=== PATIENT | female | born 1980 | race Caucasian/White ===

== ENCOUNTER 2019-10-05 11:56 | Emergency (ER) | payer BC, SELFPAY ==
[2019-10-05] VITALS (15 sets, daily range): BP systolic 107–136; BP diastolic 53–65; PULSE 65–75; RESP 9–21; TEMP 36.4; O2SAT 100
--- NOTE | ~2019-10-05 | CT_ITS ---
EXAMINATION: CT abdomen pelvis wo con DATE: 10/05/2019 12:47 INDICATION: Right flank pain TECHNIQUE: Computed tomography (CT) of the abdomen and pelvis was performed without intravenous contr ast. Automated exposure control and iterative reconstruction technique were employed. Exam dose: 675 .05 mGy-cm total exam DLP. COMPARISON: None. FINDINGS: The lung bases are clear. Normal heart size. Pacemaker lead. No pericardial or pleural effu tierra. The liver, gallbladder, bile ducts, spleen, pancreas, pancreatic duct and adrenal glands are unremark able. There is an approximately 3.7 mm distal right ureteral calculus with mild to moderate right hydrouret eronephrosis. No other urinary tract calculus is evident. No left hydroureteronephrosis. Normal caliber of the abdominal aorta. No intraperitoneal or retroperitoneal or pelvic mass lesion or adenopathy. An IUD is noted within the uterus. The uterus and adnexal areas and urinary bladder are otherwise unr emarkable. There is a small amount of likely physiologic free fluid in the dependent pelvis. No bowel obstruction or intraperitoneal free air is detected. Normal appendix. Small fat-containing umbilical hernia. IMPRESSION: 3.7 mm distal right ureteral calculus with mild to moderate right hydroureteronephrosis Reviewed, dictated and finalized at [facility] Reviewed, dictated and finalized at [facility].
--- NOTE | 2019-10-05 12:17 | ED.ABDPAIN ---
HPI - Abdominal Pain General Chief Complaint: Urogenital-Female Stated Complaint: right flank pain Time Seen by Provider: 10/05/19 11:58 Source: patient Mode of arrival: ambulatory Limitations: no limitations History of Present Illness HPI narrative: Patient is a 39-year-old female who presents to emergency department for evaluation of right flank pain began acutely today as a sharp stabbing pain from the low back into the groin with associated chills nausea and vomiting denies similar occurrence has not taken anything for symptoms presents to the emergency department in no obvious distress. Related Data Allergies Allergy/AdvReac Type Severity Reaction Status Date / Time No Known Allergies Allergy Mild Unverified 10/26/08 18:13 Review of Systems Review of Systems: All systems reviewed & are unremarkable except as noted in HPI and below PMFSH Past Medical History Medical History (Updated 10/05/19 @ 15:48 by Teddy Vo PA-C) Prolonged QT syndrome Surgical History Surgical History History of cardiac defibrillator placement Social History Social History Gender identity (if verbalized by the patient): Female Exam Narrative: Exam Narrative: GENERAL: Well-appearing, well-nourished, and in no acute distress. HEAD: Normocephalic, atraumatic. EYES: PERRLA and EOMI. ENT: Nares clear, no rhinorrhea or epistaxis. Mucous membranes moist. Oropharynx without tonsillar hypertrophy exudate or other lesions. CHEST: Clear to auscultation. No respiratory distress. No wheezes rales or rhonchi HEART: Regular rate and rhythm. No murmur heard. Normal peripheral pulses. ABDOMEN: Soft, tenderness in the right side of the abdomen, no rebound or guarding. Nondistended EXTREMITIES: Normal range of motion. No edema. SKIN: Warm, dry, no rash. NEURO: No focal deficits. Alert and oriented x3. Cranial nerves 2-12 intact PSYCH: Normal mood and affect. Course Course Emergency Course: Patient in the room at this time in no distress aware of case findings treatment plan and diagnosis. Patient was given 3 L of fluid in the emergency department noting improvement of condition and pain. Patient aware of discussion with urology and agreeing to follow-up on an outpatient basis provided with reasons to return Consultations Consultation #1: Discussed case with neurology who recommends the patient can be sent home Date: 10/05/19 Time: 15:47 Vital Signs Vital signs: Vital Signs Temperature 97.5 F L 10/05/19 11:59 Pulse Rate 68 10/05/19 11:59 Respiratory Rate 10/05/19 11:59 Blood Pressure 136/53 L 10/05/19 11:59 Pulse Oximetry 100 10/05/19 11:59 Temperature 97.5 F L 10/05/19 11:59 Pulse Rate 68 10/05/19 11:59 Respiratory Rate 10/05/19 11:59 Blood Pressure 136/53 L 10/05/19 11:59 Pulse Oximetry 100 10/05/19 11:59 MDM - Abdominal Pain MDM Narrative Medical decision making narrative: Patient with urolithiasis without other high risk changes in the imaging or blood work felt appropriate for outpatient reevaluation with improvement with medications provided with reasons to return and agrees to do so if symptoms worsen Imaging Data Radiologist's impression: ITS Impressions Abdomen/Pelvis CT 10/05/19 13:04 IMPRESSION: 3.7 mm distal right ureteral calculus with mild to moderate right hydroureteronephrosis Discharge Plan Discharge Clinical Impression: Urolithiasis Patient Disposition: Home, Self-Care Condition: Stable Instructions: Antibiotic Form, Kidney Stones (ED) Additional Instructions: Follow-up with primary care and urology in the next 3 days for reevaluation Antibiotics as prescribed. Increase fluid intake. Tylenol for pain and or fever if needed. Follow up with your doctor for further care. Call your doctor or return to the emergency depa
[2019-10-05] MEDS: KETOROLAC 30 MG/ML VIAL (*BKC) IV PUSH (12:20)
[2019-10-05] MEDS: SODIUM CHLORIDE 0.9% IV 1,000 ML 999 ML IV CONT ×3 (12:20→15:16)
[2019-10-05 12:23] LABS: Basophils Percent Auto 0.4 % (0.2-1.2); Eosinophils Absolute Auto 0.4 K/mm3 (0-0.3); Eosinophils Percent Auto 3.4 % (0-4.4); Hemoglobin 14.2 g/dL (12.0-15.0); Immature Granulocyte Absolute 0.03 K/mm3 (0.00-0.031); Immature Granulocyte Percent A 0.3 % (0-0.5); Lymphocytes Absolute Auto 2.96 K/mm3 (0.9-3.2); Lymphocytes Percent Auto 27.4 % (18.3-44.2); Mean Corpuscular HGB Conc 32.3 g/dl (32-36); Mean Corpuscular Hemoglobin 30.6 pg (26-34); Mean Corpuscular Volume 94.8 fl (80-100); Mean Platelet Volume 11.9 fl (7.4-10.4); Monocytes Absolute Auto 0.8 K/mm3 (0.1-0.6); Monocytes Percent Auto 7.6 % (2.6-8.5); Neutrophils Absolute Auto 6.6 K/mm3 (1.3-6.7); Neutrophils Percent Auto 60.9 % (45.5-73.1); Platelet Count Result 245 k/mm3 (150-375); Red Blood Count 4.64 M/mm3 (4.2-5.4); Red Cell Distribution Width 13.6 % (11.5-14.5); White Blood Count 10.8 K/mm3 (4.5-10.0)
[2019-10-05 12:30] LABS: Add Urine Microscopic? YES; Appearance Urine Clear (Clear); Bacteria Urine Trace /hpf; Bilirubin Urine Negative (Negative); Blood Urine Negative (Negative); Color Urine Yellow (Yellow); Glucose Urine UA Negative (Negative); Ketones Urine Trace mg/dL (Negative); Leukocyte Esterase Ur Negative LEU/UL (Negative); Mucus Urine Heavy /lpf; Nitrate Urine Negative (Negative); Protein Urine 1+ mg/dL (Negative); Specific Grav Ur 1.024 (1.001-1.035); Squamous Epithelial Cell Urine Many /hpf (Few); Urobilinogen Urine Negative mg/dL (<2.0); WBC Urine 0-3 /hpf
[2019-10-05] MEDS: PROMETHAZINE HCL 25 MG/ML AMPUL 12.5 MG IV PUSH (12:32)
[2019-10-05 12:34] LABS: Alanine Aminotransferase 17 U/L (4-35); Albumin Level 4.7 g/dL (3.5-5.1); Alkaline Phosphatase 45 U/L (38-126); Aspartate Amino Transferase 20 U/L (14-36); Bilirubin,Total 0.6 mg/dL (0.2-1.3); Blood Urea Nitrogen 9 mg/dL (7-17); Calcium 9.1 mg/dL (8.4-10.2); Carbon Dioxide 27 mmol/L (22-30); Chloride 103 mmol/L (98-107); Estimated CRCL calculation 74 ml/min; Estimated Glomerular Filt Rate > 60; Glucose 118 mg/dL (65-105); Potassium 3.6 mmol/L (3.4-5.0); Sodium 137 mmol/L (137-145)
[2019-10-05] MEDS: MORPHINE SULFATE 4 MG/ML INJ IV PUSH (14:12)
== END 2019-10-05 17:27 | disposition home or self-care (01) ==
PROVIDERS: Emergency Medicine Emergency Medical Services; Emergency Provider Emergency Medicine; PCP Nurse Practitioner Family
DX: N13.2 Hydronephrosis with renal and ureteral calculous obstruction (principal)
CPT/HCPCS: 36415; 74176; 80053; 81001; 81025; 85025; 96361; 96365; 96375; 99284; A9270; J0131; J1885; J2270; J2550; J7030

== ENCOUNTER → 2020-03-31 09:50 | Outpatient (CLI) | payer BC, SELFPAY ==
--- NOTE | ~2020-03-31 | MMUS_ITS ---
EXAMINATION: MM diagnostic saji BI w brenda, US breast BI complete HISTORY: Palpable breast abnormalities in breast pain. TECHNIQUE: Additional 3-D tomosynthesis images of the breasts were performed and synthetic 2-D images were generated. CAD analysis was submitted and interpreted. High resolution bilateral breast ultraso und was performed. COMPARISON: Comparison to multiple prior studies sequentially, with oldest reviewed study dated 02/25. BREAST PARENCHYMAL COMPOSITION: The breasts are heterogenously dense, which may obscure small masses. FINDINGS: MAMMOGRAPHIC FINDINGS: The breasts are stable. No new masses, architectural distortion or suspicious calcifications are iden tified to suggest malignancy. ULTRASOUND: Complete bilateral breast ultrasound: In the right breast at 10:00, 10 cm from the nipple, there are 2 cysts, largest measuring 2.4 cm greatest dimension. No suspicious masses are identified in either b reast to suggest malignancy. IMPRESSION: 1. No evidence for malignancy in either breast. 2. Routine yearly screening mammogram and regular clinical breast examination are recommended. BI-RADS Category 2: Benign finding(s). Reviewed, dictated and finalized at [facility]. [employer] CLINICAL NURSE SPECIALIST IMPRESSION: 1. No evidence for malignancy in either breast. 2. Routine yearly screening mammogram and regular clinical breast examination a re recommended. BI-RADS Category 2: Benign finding(s).
== END ==
PROVIDERS: PCP Nurse Practitioner Family; Visit Provider Nurse Practitioner
DX: N63.11 Unspecified lump in the right breast, upper outer quadrant (principal)
CPT/HCPCS: 76641; 77062; 77066; G0279

== ENCOUNTER → 2020-03-31 10:46 | Outpatient (CLI) | payer BC, SELFPAY ==
--- NOTE | ~2020-03-31 | US_ITS ---
EXAMINATION: US retroperitoneal comp DATE: 03/31/2020 11:22 INDICATION: Right ureteral stone TECHNIQUE: Multiple grayscale and Doppler ultrasound images of the kidneys were obtained. COMPARISON: CT, 10/05/2019 FINDINGS: The right kidney measures 11.9 x 5.3 x 6.1 cm. The left kidney measures 11.1 x 4.1 x 5.8 cm . The kidneys demonstrate normal parenchymal echogenicity. There is no hydronephrosis. The bladder is normal. IMPRESSION: 1. Normal kidneys without hydronephrosis. Reviewed, dictated and finalized at [facility] STEWARD
--- NOTE | ~2020-03-31 | XR_ITS ---
EXAMINATION: XR abdomen/kub 1V INDICATION: Right ureteral stone TECHNIQUE: Supine views of the abdomen were obtained on 2 radiographs. COMPARISON: CT, 10/05/2019 FINDINGS: No urolithiasis is identified. The bowel gas pattern is normal. There is a moderate volume of colonic stool. The visualized lung bases are clear. An IUD is noted. There is a partially imaged c ardiac pacemaker lead. IMPRESSION: 1. No urolithiasis identified. Reviewed, dictated and finalized at [facility]. ULAR TECHNICIAN
== END ==
PROVIDERS: PCP Nurse Practitioner Family; Visit Provider Urology
DX: N20.1 Calculus of ureter (principal)
CPT/HCPCS: 74018; 76770

== ENCOUNTER → 2021-05-09 09:53 | Outpatient (CLI) | payer BC, SELFPAY ==
--- NOTE | ~2021-05-09 | MM_ITS ---
EXAMINATION: MM screening saji BI w brenda HISTORY: Screening mammogram TECHNIQUE: Craniocaudal and mediolateral oblique 3-D tomosynthesis images were obtained and synthetic 2-D images were generated. CAD analysis was submitted and interpreted. COMPARISON: 03/31/2020, 03/11/2019, 09/19/2016 BREAST PARENCHYMAL COMPOSITION: The breasts are heterogeneously dense, which may obscure small masses . FINDINGS: Scattered benign-appearing calcifications are present. There is no evidence of suspicious m ass, calcification, or architectural distortion to suggest malignancy in either breast. There has bee n no suspicious interval change. IMPRESSION: 1. No mammographic evidence of malignancy. 2. Recommend routine screening mammography in one year. BI-RADS Category 2: Benign finding(s). Reviewed, dictated and finalized at [facility]. EL DRIER
== END ==
PROVIDERS: PCP Nurse Practitioner Family; Visit Provider Nurse Practitioner
DX: Z12.31 Encounter for screening mammogram for malignant neoplasm of breast (principal)
CPT/HCPCS: 77063; 77067

== ENCOUNTER → 2022-09-18 09:51 | Outpatient (CLI) | payer BC, SELFPAY ==
--- NOTE | ~2022-09-18 | MM_ITS ---
EXAMINATION: MM screening saji BI w brenda HISTORY: Screening mammogram TECHNIQUE: Craniocaudal and mediolateral oblique 3-D tomosynthesis images were obtained and synthetic 2-D images were generated. CAD analysis was submitted and interpreted. COMPARISON: 05/09/2021 bilateral screening mammogram 03/2020 bilateral diagnostic mammography and bilateral complete breast ultrasound examination BREAST PARENCHYMAL COMPOSITION: The breasts are heterogeneously dense, which may obscure small masses . FINDINGS: There appears to be interval architectural distortion in the upper right breast on MLO view . Diagnostic right mammogram and right breast ultrasound examination are recommended. Asymmetric density in the anterior lower left breast on MLO view. Diagnostic left mammogram and left breast ultrasound examination are recommended. Some indeterminate microcalcifications are noted bilaterally. Bilateral diagnostic mammography with m agnification views is recommended. IMPRESSION: 1. Architectural distortion, upper right breast, new asymmetry, lower left breast on MLO view and purvi ateral indeterminate microcalcifications 2. Bilateral diagnostic mammography and bilateral breast ultrasound examination are recommended. BI-RADS Category 0: Incomplete: Needs additional imaging evaluation. Reviewed, dictated and finalized at [facility]. IMPRESSION: 1. Architectural distortion, upper right breast, new asymmetry, lower left nina st on MLO view and bilateral indeterminate microcalcifications 2. Bilateral diagnostic mammography and bilateral breast ultrasound examination are recommended. BI-RADS Category 0: Incomplete: Needs additional imaging evaluation.
== END ==
PROVIDERS: PCP Obstetrics & Gynecology Gynecology; Visit Provider Obstetrics & Gynecology Gynecology
DX: Z12.31 Encounter for screening mammogram for malignant neoplasm of breast (principal); R92.8 Other abnormal and inconclusive findings on diagnostic imaging of breast
CPT/HCPCS: 77063; 77067

== ENCOUNTER → 2022-10-13 08:58 | Outpatient (CLI) | payer BC, SELFPAY ==
--- NOTE | ~2022-10-13 | MM_ITS ---
EXAMINATION: MM diagnostic saji BI w brenda HISTORY: Possible right breast architectural distortion, left breast asymmetry, and microcalcificatio ns on screening mammogram TECHNIQUE: Additional views of the breasts were performed. CAD analysis was submitted and interpreted . COMPARISON: 09/18/2022, 05/09/2021, 03/31/2020, 03/11/2019, 09/19/2016 FINDINGS: There is a return to baseline fibroglandular appearance with spot compression of the breast s in the areas questioned on screening mammogram. Magnification views also demonstrate bilateral nina st calcifications to be stable when compared to prior mammograms. IMPRESSION: 1. No mammographic evidence of malignancy. 2. Recommend routine screening mammography in one year. BI-RADS Category 2: Benign finding(s). Reviewed, dictated and finalized at [facility].
== END ==
PROVIDERS: PCP Obstetrics & Gynecology Gynecology; Visit Provider Obstetrics & Gynecology Gynecology
DX: R92.8 Other abnormal and inconclusive findings on diagnostic imaging of breast (principal)
CPT/HCPCS: 77062; 77066; G0279

== ENCOUNTER → 2022-12-01 08:53 | Outpatient (CLI) | payer BC, SELFPAY ==
--- NOTE | ~2022-12-01 | US_ITS ---
Pelvic ultrasound. Clinical History: Pelvic swelling Technique: Realtime transabdominal and transvaginal scanning of the pelvis was performed. Color flow Doppler and Doppler spectral analysis were performed. Findings: The uterus is anteverted. The endometrial stripe has a thickness of 5 mm. IUD in satisfact ory position. No focal mass is identified. The right ovary measures 2.9 x 1.7 x 2.4 cm. No significant right ovarian or adnexal mass is seen. The left ovary measures 2.8 x 2.0 x 2.3 cm. No significant left ovarian or adnexal mass is seen. There is no evidence of free fluid in the cul de sac. Impression: IUD in satisfactory position. No other significant findings. Reviewed, dictated and finalized at [facility]. Impression: IUD in satisfactory position. No other significant findings.
== END ==
PROVIDERS: PCP Nurse Practitioner Family; Visit Provider Nurse Practitioner
DX: R19.09 Other intra-abdominal and pelvic swelling, mass and lump (principal); Z97.5 Presence of (intrauterine) contraceptive device
CPT/HCPCS: 76830

== ENCOUNTER 2024-12-03 13:39 | Outpatient (CLI) | payer BC, SELFPAY ==
--- NOTE | ~2024-12-03 | MM_ITS ---
EXAMINATION: MM screening saji BI w brenda HISTORY: Screening TECHNIQUE: Craniocaudal and mediolateral oblique 3-D tomosynthesis images were obtained and synthetic 2-D images were generated. CAD analysis was submitted and interpreted. COMPARISON: Comparison to multiple prior studies sequentially, with oldest reviewed study dated 09/19. BREAST PARENCHYMAL COMPOSITION: Dense: The breasts are heterogeneously dense, which may obscure small masses FINDINGS: There is no evidence of suspicious mass, calcification, or architectural distortion to sugg est malignancy in either breast. There has been no suspicious interval change. IMPRESSION: 1. No mammographic evidence of malignancy. 2. Recommend routine screening mammography in one year. BI-RADS Category 1: Negative Reviewed, dictated and finalized at [facility].
== END 2024-12-03 13:40 | disposition home or self-care (01) ==
LOC: MICIMG 13:40
PROVIDERS: PCP Nurse Practitioner Family; Visit Provider Nurse Practitioner
DX: Z12.31 Encounter for screening mammogram for malignant neoplasm of breast (principal)
CPT/HCPCS: 77063; 77067